=== PATIENT | female | born 1995 | race Caucasian/White ===

== ENCOUNTER 2022-11-11 00:18 | Emergency (ER) | payer OTHER ==
[~2022-11-11] VITALS: Ht 172.7 cm; Wt 185.0 kg
[2022-11-11 00:31] VITALS: TEMP 98.6
[2022-11-11 00:42] LABS: APPEARANCE,URINE CLEAR (CLEAR); BILIRUBIN,URINE NEGATIVE (NEGATIVE); COLOR,URINE COLORLESS (YELLOW); GLUCOSE, URINE (UA) NEGATIVE (NEGATIVE); KETONES,URINE NEGATIVE (NEGATIVE); LEUKOCYTE ESTERASE ,URINE NEGATIVE (NEGATIVE); NITRATE,URINE NEGATIVE (NEGATIVE); OCCULT BLOOD,URINE NEGATIVE (NEGATIVE); PROTEIN,URINE NEGATIVE (NEGATIVE); SPECIFIC GRAVITIY, URINE 1.005 (1.003-1.030); UROBILINOGEN,URINE <=1.0 mg/dL (<=1.0)
[2022-11-11 00:53] LABS: BACTERIA,URINE None Seen /HPF (None Seen); RBC,URINE None Seen /HPF (0-2); WBC,URINE None Seen /HPF (0-5)
[2022-11-11 00:54] LABS: SQUAMOUS EPITHELIAL CELL,UR Few /LPF (None Seen)
[2022-11-11 01:56] VITALS: BP 123/77; PULSE 80; RESP 16
[2022-11-11] MEDS ORDERED: IBUPROFEN 600 MG TABLET PO ONE (02:00)
== END 2022-11-11 02:22 | disposition home or self-care (01) ==
LOC: EMS 00:19
DX: M54.50 Low back pain, unspecified (principal)
CPT/HCPCS: 81001; 84703; 99283